=== PATIENT | male | born 2000 | race Caucasian/White ===

== ENCOUNTER 2023-07-18 11:27 | Outpatient (CLI) | payer OTHER, SELFPAY ==
--- OUTSIDE RECORDS SUMMARY | 2023-07-18 11:30 | XMS_ITS | Clinical Summary ---
Author Name Unknown Organization [employer] [facility] Address [place], [place] [address] Care Team Providers Care General Operations Manager Name Role Phone Unavailable Primary Care Provider Unavailabl e Allergies No known active allergies Medications Medication Sig Dispensed Refills Start Date End Date Status RIBOFLAVIN 5PO 0.5% OPHTHALMIC SOLUTION (MARY KATE AMB MIX) Use as directed for procedure. Refrigerate. 5 mL 08/12/2014 Active Social History Tobacco Use Types Packs/Day Years Used Date Smoking Tobacco: Never Alcohol Use Standard Drinks/Week Comments Yes 0 (1 standard drink = 0.6 oz pur e alcohol) twice weekly Sex and Gender Information Value Date Recorded Sex Assigned at Not on file Gender Identity Not on file Sexual Orientation Not on file Obstetrics History Last Filed Vital Signs Vital Sign Reading Time Taken Comments Blood Pressure 162/102 09/30/2021 11:57 AM CDT Pulse 88 09/30/2021 11:13 AM CDT Temperature 36.9 ??C (98.5 ??F) 09/30/2021 11:13 AM C DT Respiratory Rate 20 09/30/2021 11:13 AM CDT Oxygen Saturation 97% 09/30/2021 11:13 AM CDT Inhaled Oxygen Concentration - - Weight 93 kg (205 lb) 09/30/2021 11:13 AM CDT Height - - Body Mass Index - - Plan of Treatment Health Maintenance Due Date Last Done Comments Tdap 2009 Depression screening for age 12+ 2010 HIV for age 15-65 2013 HPV series for age 9-26 (1 - Male 3-dose series) 2013 BMI (ht and wt on same day) for age 18+ 2016 Hepatitis C screening for ag e 18-79 2016 Tetanus booster 2018 COVID-19 vaccine series ( season) 2022 02/01/2021, 07/07/2020, 06/16/2020 Influenza for age 9-49 11/05/2023 Pneumococcal series for age 6-64 Aged Out No longer eligible b ased on patient's age to complete this topic
== END 2023-07-18 11:28 | disposition home or self-care (01) ==
PROVIDERS: PCP Family Medicine; Visit Provider Family Medicine
DX: Z00.00 Encounter for general adult medical examination without abnormal findings (principal); Z13.1 Encounter for screening for diabetes mellitus; Z13.6 Encounter for screening for cardiovascular disorders; I10 Essential (primary) hypertension
CPT/HCPCS: 80061; 82947